=== PATIENT | male | born 1935 | race Caucasian/White ===

== ENCOUNTER 2016-11-01 17:44 | Inpatient (IN) ==
[2016-11-01 18:55] LABS: MANUAL DIFF NEEDED? NO
[2016-11-01 18:57] LABS: BASO% 0.4 % (0.0-0.8); EOS# 0.04 X1000 (0.0-0.7); EOS% 0.5 % (0.0-10.0); HEMATOCRIT 36.2 % (42.0-52.0); LYMPH# 1.02 X1000 (1.2-3.4); LYMPH% 13.7 % (20.5-51.1); MCH 32.2 PG (27-31); MCHC 33.1 g/dL (33-37); MCV 97.1 FL (81-99); MONO# 1.23 X1000 (0.11-0.59); MONO% 16.6 % (1.7-9.3); MPV 11.6 FL (7.4-10.4); NEUT% 68.8 % (42.2-75.2); PLT 225 X1000 (130-400); RBC 3.73 XMIL (4.7-6.1)
--- NOTE | 2016-11-01 19:33 | Diag Imaging Result Doc PS360 ---
EXAM: FLAT/UPRIGHT ABD/1 VIEW CHEST HISTORY: pancreatic cancer TECHNIQUE: Three views COMPARISON: 10/20/2016 FINDINGS: The lungs are well expanded. No cardiomegaly. Minimal increased markings in the left base. No free air beneath the diaphragm. There is at least mild scoliosis with degenerative spine changes. No bowel obstruction. No organomegaly. IMPRESSION: Left basilar atelectasis. No acute abdominal abnormality. Electronically signed by Naga Laura 11/01/2016 7:31 PM
[2016-11-01 19:52] LABS: ALBUMIN 3.4 g/dL (3.5-5.0); MAGNESIUM 2.3 mg/dL (1.5-2.7); POTASSIUM 4.5 mmol/L (3.5-5.1); TOTAL BILIRUBIN 0.77 mg/dL (0.20-1.00); TOTAL PROTEIN 7.3 g/dL (6.3-8.3)
[2016-11-01 19:53] LABS: CALCIUM 12.3 mg/dL (8.8-10.2)
[2016-11-01] MEDS ORDERED: NS 1,000 ML IV ONE (20:11)
[2016-11-01] MEDS ORDERED: LASIX IV ONE (20:11)
[2016-11-01] MEDS ORDERED: ZOFRAN IV ONE (20:21)
[2016-11-01] MEDS ORDERED: MORPHINE IV ONE ×2 (20:21→21:14)
--- NOTE | 2016-11-01 20:23 | PROVIDER DOCUMENTATION ---
This chart was entered by Florencia Jesus Scribe, acting as scribe for Dylan Reyna MD. HPI-General Adult - General Chief Complaint: General Adult Stated Complaint: weakness x 3 weeks/lf hip pain Time Seen by Provider: 11/01/16 18:33 Source: family Allergies/Adverse Reactions: Patient Allergies Allergy/AdvReac Type Severity Reaction Status Date / Time hydrochlorothiazide Allergy Mild RASH Verified 11/01/16 18:28 Penicillins Allergy Mild RASH Verified 11/01/16 18:28 Sulfa (Sulfonamide Allergy Mild RASH Verified 11/01/16 18:28 Antibiotics) [Sulfa(Sulfonamide Antibiotics)] tetracycline HCl * Allergy Mild RASH Verified 11/01/16 18:28 [From Sumycin] terazosin HCl * [From Hytrin] AdvReac Intermediate Unknown Verified 11/01/16 18: 28 fluoxetine HCl * AdvReac Unknown Verified 11/01/16 18:28 [From Prozac] fluvoxamine maleate * AdvReac Unknown Verified 11/01/16 18:28 [From Luvox] Home Medications: Home Medication List Medication Instructions Recorded Confirmed Last Taken Type Carvedilol [Coreg] 12.5 mg PO BID 05/09/14 11/01/16 11/01/16 08:00 History Divalproex [Depakote] 250 mg PO TID 05/09/14 11/01/16 11/01/16 12:00 History Lorazepam [Ativan] 0.25 mg PO BID 05/09/14 11/01/16 11/01/16 08:00 History Pravastatin Sodium 40 mg PO DAILY 05/09/14 11/01/16 10/31/16 21:00 History Spironolactone 25 mg PO DAILY 05/09/14 11/01/16 11/01/16 08:00 History Memantine [Namenda] 5 mg PO DAILY 12/18/14 11/01/16 10/31/16 21:00 History Quetiapine Fumarate [Seroquel] 50 mg PO BID 12/18/14 11/01/16 11/01/16 08:00 History Torsemide 20 mg PO BID 12/18/14 11/01/16 11/01/16 08:00 History Aspirin [Aspir-Low] 81 mg PO DAILY 10/20/16 11/01/16 10/31/16 21:00 History Multivitamins/Minerals [Centrum 1 tab PO DAILY 10/20/16 11/01/16 11/01/16 08:00 History Silver] Rhine-3 Fatty Acids [Fish Oil] 1 cap PO DAILY 10/20/16 11/01/16 11/01/16 08:00 History Omeprazole 20 mg PO PRN PRN 10/20/16 11/01/16 11/01/16 08:00 History Promethazine [Phenergan] 25 mg PO Q6H PRN PRN #20 tablet 10/20/16 11/01/16 Unknown Rx Vit B Comp with C/Calcium Carb 1 tab PO DAILY 10/20/16 11/01/16 11/01/16 08:00 History [Gnp B-Complex Tablet] Clindamycin [Cleocin] 450 mg PO Q8HR 10/30/16 11/01/16 11/01/16 History Hydrocodone Bit/Acetaminophen 1 each PO Q6-8H PRN PRN 10/30/16 11/01/16 History [Hydrocodon-Acetaminoph 7.5-325] Polyethylene Glycol 3350 [Miralax] 17 gm PO DAILY 10/30/16 11/01/16 11/01/16 08: 00 History - History of Present Illness -Gen Adult Nature of Presenting Problems: 81 Y/O M presents to ED with General Adult. Pt family states that he's been having increased dehydration and weakness with increased lack of appetite, insomnia. Pt needed help into the car to come to ED. Pt was diagnosed with pancreatic cancer earlier this week. Pt Has a hx of HTN, CHF, Hx of stroke. No diabetes. Location of Pain/Injury: reports: generalized Pain Radiation: reports: no radiation Quality of Pain: reports: aching Severity: reports: moderate, severe Onset/Duration: reports: this evening Timing: reports: still present Context/Activities at Onset: reports: none Associated Symptoms: reports: loss of appetite, muscle aches, weakness, other ( dehydration, insomnia). denies: cough, diaphoresis, fever/chills, nausea, seizure Similar Symptoms Previously?: No Recently seen or treated by another doctor?: Yes Review of Systems - Adult - REVIEW OF SYSTEMS - ADULT Constitutional: denies: chills, fever Eyes: reports: no symptoms reported Ears, Nose, Mouth & Throat: reports: no symptoms reported Cardiovascular: reports: no symptoms reported Respiratory: reports: no symptoms reported Gastrointestinal: reports: poor appetite, other (dehydration) Genitourinary: reports: no symptoms reported Musculoskeletal: reports: muscle weakness Integumentary: reports: no symptoms reported Neurological: denies: headache/migraines Psychiatric: reports: insomnia Endocrine: reports: no symptoms reported Hematologic/Lymphatic: reports: no symptoms reported Allergic/Immunologic: reports: no symptoms reported All Other Systems: Reviewed and Negative Past History - Adult - PAST MEDICAL HISTORY-ADULT Review of Records: reports: Old Records Reviewed, Nursing Assessment Review, Medications Reviewed, Social history reviewed & non-contributory. Major Childhood Illnesses: reports: denies history Cardiovascular: reports: CHF, HTN, hyperlipidemia Respiratory: reports: denies history Gastrointestinal: reports: denies history Obstetrical/Gynecological: reports: denies history Genitourinary: reports: kidney disease Musculoskeletal: reports: denies history Neurological: reports: CVA Psychiatric: reports: anxiety, depression Endocrine/Immune: reports: denies history Other Conditions: reports: denies history - PRIOR SURGERIES/PROCEDURES Surgical/Procedure History: reports: appendectomy, hernia repair, back/neck ( back sx), other (heart valve replacement /TURP) - IMMUNIZATION STATUS Childhood Immunizations: See Nurse Assessment Flu Vaccine: See Nurse Assessment - FAMILY HISTORY Family History: reviewed, not pertinent - SOCIAL HISTORY Smoking: non-smoker Substance Use: none/never Alcohol Use Frequency: never Living Situation: family Physical Exam-General - CONSTITUTIONAL General Appearance: alert, mild distress - EYES Eyes: pink conjunctivae - HEAD, EARS, NOSE, MOUTH & THROAT HENMT: moist mucous membranes, normal ENT inspection, TMs normal - NECK Neck: full range of motion - RESPIRATORY Respiratory: lungs clear, normal breath sounds - CARDIOVASCULAR Cardiovascular: regular rate, rhythm - GASTROINTESTINAL (ABDOMEN) Abdominal Exam: distended (fluid wave on ABD) - MUSCULOSKELETAL Extremity: pedal edema (+1 ankles into calves). negative: normal gait - SKIN Integumentary: warm/dry - PSYCHIATRIC Psych/Mental Status: normal mood/affect, oriented x 3 Progress - PLAN OF CARE/RESULTS Progress/Plan/Lab Results: Vital Signs - 8 hr 11/01/16 18:11 Temperature 97.8 F Pulse Rate 75 Respiratory Rate 25 H Blood Pressure 149/81 O2 Sat by Pulse Oximetry 95 Orders Category Date Time Status FLAT/UPRIGHT ABD/1 VIEW CHEST [RAD] Stat Exams 11/01/16 18:37 Ordered AMMONIA [CHEM] Stat Lab 11/01/16 18:36 Uncollected CBC WITH ELECTRONIC DIFF [HEME] Stat Lab 11/01/16 18:35 Uncollected CMP [COMPREHENSIVE METABOLIC PANEL] [CHEM] Stat Lab 11/01/16 18:35 Uncollected Depakote [VALPROIC ACID] [TDM] Stat Lab 11/01/16 18:39 Uncollected LIPASE [CHEM] Stat Lab 11/01/16 18:35 Uncollected MAGNESIUM [CHEM] Stat Lab 11/01/16 18:39 Uncollected UA [UA NIMS W/REFLEX CULT] [URINALYSIS] Stat Lab 11/01/16 18:36 Uncollected Result Diagrams: 11/01/16 18:44 11/01/16 18:44 Departure - Departure Date of Disposition Decision: 11/01/16 Time of Disposition Decision: 20:22 DIAGNOSIS: 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, Hypercalcemia of malignancy Disposition: ADMITTED INPATIENT 09 Certified Medical Emergency: Emergent Condition: Good Referrals and Follow-Ups: Priti Joshua MD [Primary Care Provider] - Tom Perdue MD [ACTIVE STAFF PHYSICIAN] - - Critical Care Note This patient required my direct & personal management of CC.: No Attestation - Physician/ CARLOS MANUEL Attestation Patient care was provided by Advanced Practice Provider:: No The physician spent face to face time with patient:: No Advanced Practice Provider documentation review:: Supervising physician onsite and consulted in the evaluation and care of this patient. The physician did not have a face to face encounter with the patient. This chart was documented by the indicated scribe, (Florencia Jesus Scribe) and accurately reflects the services I performed and decisions made by me, Dylan Reyna MD, as attested by the provider's signature.
[2016-11-01 20:48] LABS: URINE CULTURE NEEDED? NO; URINE MICRO REVIEW NEEDED? NO; URINE SOURCE CATH
[2016-11-01 20:53] LABS: BILIRUBIN URINE NEGATIVE (NEGATIVE); BLOOD URINE NEGATIVE (NEGATIVE); COLOR YELLOW; GLUCOSE URINE NEGATIVE (NEGATIVE); LEUKOCYTES URINE NEGATIVE (NEGATIVE); NITRITE URINE NEGATIVE (NEGATIVE); PH URINE 5.5; PROTEIN URINE NEGATIVE (NEGATIVE); SP GRAVITY URINE 1.015; TURBIDITY URINE CLEAR (CLEAR); UROBILINOGEN URINE NORMAL (NORMAL)
[2016-11-01 20:54] LABS: UR EPITHELIAL CELLS <10 /HPF (<10); URINE BACTERIA NEGATIVE /HPF; URINE RBC TNTC /HPF (<10); URINE WBC <10 /HPF (<10)
[2016-11-01] MEDS ORDERED: DILAUDID IV ONE (23:10)
[2016-11-02] MEDS ORDERED: PRILOSEC PO PRN (00:37)
[2016-11-02] MEDS ORDERED: ZOFRAN IV PRN (00:37)
[2016-11-02] MEDS: NS 1,000 ML IV SCH ×3 (01:51→22:05)
--- NOTE | 2016-11-02 06:20 | HISTORY AND PHYSICAL ---
PRIMARY CARE PHYSICIAN: Dr. Priti Joshua CHIEF COMPLAINT: Weakness. No appetite for several days. HISTORY OF PRESENTING ILLNESS: An 81-year-old male who was just recently diagnosed with pancreatic cancer, hypertension and hyperlipidemia who presented to the emergency department complaining of weakness and having no appetite for the past several days. The patient's family had brought him to the emergency department and he had routine laboratories drawn that did show that he had elevated calcium levels. Due to his presenting symptoms, it was thought that he would need hospitalization for further management. At the time of my examination, he had denied any headache, fever, chills, chest pain, shortness of breath or any recent hemoptysis or melanotic stools. PAST MEDICAL HISTORY: Includes pancreatic cancer, hypertension, hyperlipidemia and CHF. PAST SURGICAL HISTORY: Heart valve replaced. Aortic valve replacement. Hernia repair. Back surgery. ALLERGIES: Penicillin, mycin's, hydrochlorothiazide and sulfa. CURRENT MEDICATIONS: Listed in the medication reconciliation sheet. SOCIAL HISTORY: No history of smoking, alcohol or illicit drug use. FAMILY HISTORY: No history of coronary artery disease. REVIEW OF SYSTEMS: Twelve point systems as in HPI. Other systems negative. PHYSICAL EXAMINATION: GENERAL: Cooperative, friendly male. He is resting comfortably now. VITAL SIGNS: Temperature 97.8 degrees, pulse 75, respirations 25, and blood pressure 149/81. HEENT: Atraumatic, normocephalic. Extraocular movements intact. PERRLA. NECK: No masses. CHEST: Clear to auscultation. CARDIOVASCULAR: Regular rhythm. ABDOMEN: Soft. Positive bowel sounds. EXTREMITIES: No edema. NEUROLOGIC: He is awake, alert, and oriented x3. : No bladder distention. SKIN: Warm. LABORATORIES AND STUDIES: WBC 7.43, hemoglobin 12.1, hematocrit 36.2, and platelets 225,000. Calcium is 12.3. Sodium 137, potassium 4.5, chloride 94, CO2 30, BUN is 36 and creatinine 4.4. Glucose is 138. ASSESSMENT: This 81-year-old male with a history of recently diagnosed pancreatic cancer, hypertension, and hyperlipidemia who presented to the emergency room with several days history of worsening weakness, fatigue and poor appetite. He was evaluated in the ER. He was found to have elevated calcium levels and due to his presenting symptoms, he will need hospitalization for further management 1. Weakness and fatigue. 2. Moderate hypercalcemia. 3. Recently diagnosed with pancreatic cancer. 4. Hypertension. PLAN: 1. We will admit patient to medical floor with telemetry. 2. We will continue supportive care. 3. We will continue with IV fluids for volume expansion. 4. We will consult his oncologist. 5. Monitor blood pressure closely. Resume antihypertensive agent. 6. Put patient on DVT prophylaxis with SCD's. 7. Continue follow and reassess. cc: Brian Rosas MD
[2016-11-02] MEDS: DILAUDID IV PRN ×4 (06:49→21:51)
[2016-11-02 06:52] LABS: MANUAL DIFF NEEDED? NO
[2016-11-02 07:02] LABS: BASO% 0.3 % (0.0-0.8); EOS# 0.07 X1000 (0.0-0.7); EOS% 1.1 % (0.0-10.0); HEMATOCRIT 32.4 % (42.0-52.0); HEMOGLOBIN 10.5 g/dL (14.0-18.0); LYMPH# 0.72 X1000 (1.2-3.4); LYMPH% 10.9 % (20.5-51.1); MCH 31.6 PG (27-31); MCHC 32.4 g/dL (33-37); MCV 97.6 FL (81-99); MONO# 1.25 X1000 (0.11-0.59); MONO% 18.9 % (1.7-9.3); MPV 12.1 FL (7.4-10.4); NEUT% 68.8 % (42.2-75.2); PLT 184 X1000 (130-400); RBC 3.32 XMIL (4.7-6.1)
[2016-11-02 07:12] LABS: AGAP 11; BUN 32 mg/dL (8-22); CHLORIDE 100 mmol/L (98-107); COSMO 286; POTASSIUM 4.4 mmol/L (3.5-5.1); SODIUM 139 mmol/L (136-145); TCO2 28 mmol/L (25-35)
[2016-11-02 07:29] LABS: CALCIUM 12.1 mg/dL (8.8-10.2)
[2016-11-02] MEDS: COREG PO SCH ×2 (08:56→21:51)
[2016-11-02] MEDS: NAMENDA PO SCH (08:56)
[2016-11-02] MEDS: ASPIRIN EC PO SCH (08:56)
[2016-11-02] MEDS: DEMADEX PO SCH ×2 (08:56→21:50)
[2016-11-02] MEDS: ATIVAN PO SCH ×2 (08:57→21:50)
[2016-11-02] MEDS: CENTRUM SILVER PO SCH (08:57)
[2016-11-02] MEDS: ALDACTONE PO SCH (08:57)
[2016-11-02] MEDS: SEROQUEL PO SCH ×2 (08:57→21:51)
[2016-11-02] MEDS ORDERED: ZOMETA 4 MG in NS 100 ML IV ONE (13:24)
[2016-11-02] MEDS: DEPAKOTE PO SCH ×3 (14:59→18:06)
--- NOTE | 2016-11-02 15:18 | PROGRESS NOTE ---
DATE: 11/02/2016 SUBJECTIVE: This is an 81-year-old who had no appetite for several days and weakness. This is an 81-year-old who was recently diagnosed with pancreatic cancer, hypertension, hyperlipidemia, who presented to the emergency department complaining of weakness and having no appetite for the past several days. The patient's family brought him to the emergency department. Routine labs drawn did showed that he did have elevated calcium levels. Due to his presenting symptoms, he thought he would benefit from hospitalization. PAST MEDICAL HISTORY: Includes pancreatic cancer recently diagnosed, hypertension, hyperlipidemia, and congestive heart failure. He has had a heart valve replaced, aortic valve replacement, hiatal hernia repair, and back surgery in the past. The patient states he feels about the same. He is requesting some pain medicine. He has not been eating well. Daughter was at the bedside. OBJECTIVE: Vital signs: Temperature 98.5 degrees, pulse 74, respirations 20, blood pressure 124/62. Lungs: Clear in all lung dong. Cardiovascular: Regular rhythm and rate without murmur or S3. Abdomen: Soft. Skin: Warm and dry. Urine output is 400 mL. LAB: White count 6630, hematocrit 32, platelet count 184,000. Chemistries: Calcium was 12.1, sodium 139, potassium 4.4, chloride 100, BUN 32, creatinine 1.1. ASSESSMENT AND PLAN: 1. Generalized weakness and hypercalcemia. Continued IV fluids. Ask Oncology to follow as well. 2. Recent diagnosis of pancreatic cancer. 3. Pain. Continued to adjust to pursue better pain control. Right now he is getting Dilaudid 1 mg IV q.3 hours. Will continue fluids at normal saline at [address] Perdue is following as well. cc: Duy Wolf MD
[2016-11-02] MEDS ORDERED: PRAVACHOL PO SCH (21:00)
[2016-11-03] MEDS: DILAUDID IV PRN ×7 (00:28→16:56)
[2016-11-03 07:12] LABS: AGAP 14; ALBUMIN 2.8 g/dL (3.5-5.0); ALKALINE PHOSPHATASE 430 U/L (32-122); BUN 27 mg/dL (8-22); CHLORIDE 100 mmol/L (98-107); COSMO 287; GOT 107 U/L (10-34); GPT 64 U/L (10-44); POTASSIUM 4.5 mmol/L (3.5-5.1); SODIUM 141 mmol/L (136-145); TCO2 27 mmol/L (25-35); TOTAL BILIRUBIN 0.79 mg/dL (0.20-1.00); TOTAL PROTEIN 6.8 g/dL (6.3-8.3)
[2016-11-03 07:16] LABS: CALCIUM 12.6 mg/dL (8.8-10.2)
[2016-11-03] MEDS ORDERED: OFIRMEV 1000 MG/ISOTONIC SOLN 1,000 MG/100 ML BOTTLE IV ONE (08:34)
[2016-11-03] MEDS: DEPAKOTE PO SCH (09:13)
[2016-11-03] MEDS: CENTRUM SILVER PO SCH (09:13)
[2016-11-03] MEDS: ALDACTONE PO SCH (09:13)
[2016-11-03] MEDS: ATIVAN PO SCH (09:14)
[2016-11-03] MEDS: SEROQUEL PO SCH (09:14)
[2016-11-03] MEDS: COREG PO SCH (09:15)
[2016-11-03] MEDS: ASPIRIN EC PO SCH (09:15)
[2016-11-03] MEDS: NAMENDA PO SCH (09:15)
[2016-11-03] MEDS: DEMADEX PO SCH (09:15)
[2016-11-03 14:28] VITALS: BP 135/65
--- NOTE | 2016-11-03 15:25 | PROGRESS NOTE ---
DATE: 11/03/2016 SUBJECTIVE: Mr. Cha is requiring quite a bit more medicine for pain, and the family is collected around the bedside and they would like to pursue inpatient hospice. OBJECTIVE: Vital Signs: T-max is 100.2 degrees, temperature right now 98.7, pulse 82, respiration is 20, blood pressure 135/65. Lungs: Clear anterolateral. Cardiovascular Exam: Regular rhythm and rate without murmur or S3. Abdomen: Soft. Skin: Warm and dry. Genitourinary: Urine output is 2800. LAB: Reviewed. Sodium 141, potassium 4.5, chloride 100, BUN 27, creatinine 1.0, so creatinine is improved. ASSESSMENT AND PLAN: 1. Generalized weakness, hypercalcemia. Continue IV fluids. 2. Recent diagnosis of pancreatic cancer. 3. Intractable pain, severe, requiring IV Dilaudid in pretty significant doses. Family wants to pursue inpatient hospice. Requesting for private room. cc: Duy Wolf MD
--- NOTE | 2016-11-03 15:35 | DISCHARGE SUMMARY ---
ADMISSION DATE: 11/01/2016 DISCHARGE DATE: 11/03/2016 HOSPITAL COURSE: This patient of Dr. Priti Joshua has had not had any appetite for several days and weakness. This is an 81-year-old recently diagnosed with pancreatic cancer, hypertension, hyperlipidemia, who presented to the emergency room with complaints of weakness, having no appetite for several days. The patient's family brought him to the emergency department and had routine laboratories. These showed that he has elevated calcium levels. Due to his presenting symptoms, he thought he would need hospitalization for further management. He required quite a bit of pain medication, not eating very well at all, and the family would like to pursue hospice. The plan is to send him home. Discharged on pain management per hospice. DISCHARGE MEDICATIONS: 1. Aspirin 81 mg a day. 2. Coreg 12.5 b.i.d. 3. Depakote 250 mg t.i.d. 4. Namenda 5 mg p.o. daily. I think we can stop those medicines; the same with Pravachol and Aldactone and Demadex. I think that we will stop all those medicines. DISPOSITION: Discharge him home under hospice care. cc: Duy Wolf MD
--- NOTE | 2016-11-03 17:46 | CONSULTATION ---
DATE OF CONSULTATION: 11/03/2016 ADMITTING PHYSICIAN: Dr. Brian Rosas. REQUESTING PHYSICIAN: Dr. Brian Rosas. We appreciate this consult. CHIEF COMPLAINT: History of pancreatic cancer. HISTORY OF PRESENT ILLNESS: Mr. Mamadou Cha is an 81-year-old male with a recent diagnosis of pancreatic cancer. He is a patient of Dr. Tom Perdue. Staging workup with PET and CT-guided biopsy of liver lesions are currently underway. The patient presented to [facility] secondary to profound weakness and loss of appetite. The patient's family states that he was unable to keep anything down by mouth and profoundly fatigued. Upon presentation the patient was found to have a significantly elevated calcium level at 12.1. The patient was admitted for supportive care. PAST MEDICAL HISTORY: 1. Pancreatic cancer. 2. Hypertension. 3. Hyperlipidemia. 4. Congestive heart failure. PAST SURGICAL HISTORY: 1. Heart valve replacement. 2. Aortic valve replacement. 3. Hernia repair. 4. Back surgery. FAMILY HISTORY: Negative for any hematologic or oncologic problems. SOCIAL HISTORY: The patient does not have a history of smoking, alcohol or illicit drug use. MEDICATIONS ON ADMISSION: 1. Lorazepam. 2. Divalproex. 3. Carvedilol. 4. Promethazine. 5. Prilosec. 6. [place]. 7. Spironolactone. 8. Amlodipine. ALLERGIES: Hydrochlorothiazide, penicillins, and sulfa. REVIEW OF SYSTEMS: A 14 point review of systems was attempted and is unable to be obtained secondary to profound somnolence and confusion. PHYSICAL EXAM: General Appearance: Mr. Cha is an 81-year-old, male, lying supine in bed, who appears quite ill at this time and is somewhat confused. Vital Signs: Temperature 98.5 degrees, blood pressure 124/62, heart rate 74, respiration is 20, O2 saturation is 96% on 2 L nasal cannula O2. HEENT: Normocephalic, atraumatic. Mucous membranes are slightly pale and dry. Sclerae is anicteric. Extraocular movements intact. Neck: Supple. Lungs: Clear to auscultation bilaterally. Chest expansion equal bilaterally. CV: S1, S2 is heard without murmur, rub or gallop. Abdomen: Soft, slightly distended, nontender. Bowel sounds are positive in all quadrants without rebound or guarding noted. Extremities: Without clubbing or cyanosis. He does have trace bilateral lower extremity edema. Dermatologic: No rashes, bruises or lesions. Neurologic: The patient is quite somnolent at this time. He is oriented to person only. He has no focal deficit. LABORATORY DATA: Hemoglobin 10.5, hematocrit 32.4, white blood cell count 6.63 , platelets 184,000, ANC 4.57. Sodium 139, potassium 4.4, chloride 100, CO2 is 28, BUN 32, creatinine 1.1, glucose 138, calcium is 12.1. IMAGING STUDIES: Abdominal x-ray reveals left basilar atelectasis with no acute abnormality. PET scan reveals pancreatic primary with extensive hepatic metastasis. Liver biopsy pathology reveals positive malignancy with necrosis. ASSESSMENT AND PLAN: 1. Pancreatic cancer recently diagnosed and confirmed by PET scan. Treatment plan is currently pending. Discussion with Dr. Perdue and the patient's family. We will follow along with you. 2. Weakness and fatigue. Stable. Would monitor the patient for now with supportive measures. 3. Hypercalcemia. IV fluids are currently ordered. We will add Zometa at this time IV. 4. Hypertension. Stable on antihypertensives with a blood pressure of 124/62. 5. We will follow along with you and make further recommendations pending outcomes. Dictated by ERIC Holden for Florence Cook MD cc: MD Rayna Camargo CRNP Heather Shah, MD I have seen and examined the patient and agree with the above A/P. Florence SAWYER
== END 2016-11-03 17:05 | disposition hospice, home (50) ==
LOC: ED 17:44 → SUATTDRO 11-02 00:16 → 3N 11-02 00:16
PROVIDERS: ATTEND Emergency Medicine